=== PATIENT | female | born 1980 | race Caucasian/White ===

== ENCOUNTER 2024-08-31 10:26 | Emergency (ER) | payer OTHER ==
[~2024-08-31] VITALS: Ht 172.7 cm; Wt 77.1 kg
[2024-08-31 10:26] VITALS: BP_SYST 124; PULSE 69; RESP 18; TEMP 97; O2SAT 100
[2024-08-31 11:26] LABS: BASOPHILS % (AUTO) 0.7 % (0.0-2.0); EOSINOPHILS % (AUTO) 0.9 % (0.0-4.0); HEMATOCRIT 40.8 % (36-48); HEMOGLOBIN 13.5 g/dL (12.0-16.0); LYMPHOCYTES # (AUTO) 2.3 K/uL (1.0-5.5); LYMPHOCYTES % (AUTO) 38.7 % (20.5-51.5); MEAN CORPUSCULAR HEMOGLOBIN 26 pg (27-31); MEAN CORPUSCULAR HGB CONC 33 % (32-36); MEAN CORPUSCULAR VOLUME 78 fL (79.0-98.0); MONOCYTES # (AUTO) 0.4 K/uL (0.0-1.0); MONOCYTES % (AUTO) 6.6 % (1.7-9.3); NEUTROPHILS # (AUTO) 3.1 K/uL (1.8-7.7); NEUTROPHILS % (AUTO) 53.1 % (40.0-70.0); PLATELET COUNT (AUTO) 261 K/uL (130-430); RED BLOOD CELL COUNT(AUTO) 5.24 MIL/uL (4.2-6.2); RED CELL DISTRIBUTION WIDTH 13.9 % (9.0-15.0); WHITE BLOOD COUNT (AUTO) 5.8 K/uL (4.8-10.8)
[2024-08-31 11:53] LABS: ANION GAP 5 (5-15); CALCIUM 9.4 mg/dL (8.4-11.0); CARBON DIOXIDE 30 mmol/L (23-29); CHLORIDE 107 mmol/L (98-107); CREATININE 1.19 mg/dL (0.55-1.30); FREE T4 (FREE THYROXINE) 0.7 ng/dL (0.6-1.6); GFR AFRICAN AMERICAN 63 mL/min (>90); GLUCOSE 97 mg/dL (74-106); POTASSIUM 4.2 mmol/L (3.5-5.1); SODIUM SERUM 142 mmol/L (136-145); THYROID STIMULATING HORMONE 1.62 uIu/mL (0.34-4.82); UREA NITROGEN, BLOOD 12 mg/dL (8-21)
[2024-08-31 11:54] LABS: GFR NON AFRICAN-AMERICAN 52 mL/min (>90)
== END 2024-08-31 11:42 | disposition home or self-care (01) ==
LOC: SED 10:26
DX: R00.2 Palpitations (principal); Z90.711 Acquired absence of uterus with remaining cervical stump; Z98.890 Other specified postprocedural states
CPT/HCPCS: 36415; 71045; 80048; 83880; 84439; 84443; 84484; 85025; 93005; 99285